=== PATIENT | male | born 1990 | race Hispanic/Latino ===

== ENCOUNTER 2016-06-02 23:29 | Emergency (ER) | payer SELFPAY ==
[~2016-06-02] VITALS: Ht 177.8 cm; Wt 75.3 kg
[2016-06-03 01:01] LABS: EOSINOPHIL (%) 0.1 % (0-5); HEMATOCRIT 46.5 % (38.0-50.0); IMMATURE GRANULOCYTE (%) 0.1 % (0.0-0.7); IMMATURE GRANULOCYTE COUNT 0.1 K/uL; MCHC 34.6 G/DL (30.0-36.0); MCV 86.8 FL (86-99); MEAN PLAT.VOLUME 11.9 uM^3 (9.0-12.4); MONOCYTE COUNT 0.1 K/uL (0-0.8); NEUTROPHIL (%) 88.2 % (45-76); NEUTROPHIL COUNT 8.6 K/uL (1.8-6.4); PLATELET COUNT 223 K/uL (156-360); RBC DIS.WIDTH-CV 12.6 % (11.8-14.6); RBC DIS.WIDTH-SD 39.7 % (39-53); RED BLOOD COUNT 5.36 M/uL (4.00-5.50); WHITE BLOOD COUNT 9.7 K/uL (4.1-10.2)
[2016-06-03 01:11] LABS: CHLORIDE 104 mEq/L (99-109); POTASSIUM 3.9 mEq/L (3.7-5.4); SODIUM 140 mEq/L (136-147)
[2016-06-03 01:13] LABS: GLUCOSE 147 mg/dL (70-99)
[2016-06-03 01:14] LABS: ANION GAP 11 MEQ/L (2-14)
[2016-06-03 01:15] LABS: TOTAL BILIRUBIN 0.4 mg/dL (0.0-1.0)
[2016-06-03 01:16] LABS: ALKALINE PHOSPHATASE 61 IU/L (3-129)
[2016-06-03 01:17] LABS: GFR ESTIMATE (CALCULATED) > 59 mL/min/
[2016-06-03 01:18] LABS: UREA NITROGEN (BUN) 16 mg/dL (9-23)
[2016-06-03 01:30] LABS: INTERNAL CONTROL VALID? YES; MONOSPOT (MONONUCLEOSIS SEROL) NEGATIVE
[2016-06-03 03:51] VITALS: BP 113/71
== END 2016-06-03 03:51 | disposition home or self-care (01) ==
LOC: EME 23:29
PROVIDERS: Emergency Medicine
DX: J02.8 Acute pharyngitis due to other specified organisms (principal); R51 Headache; R11.2 Nausea with vomiting, unspecified; M54.89 Other dorsalgia; R09.89 Other specified symptoms and signs involving the circulatory and respiratory systems
CPT/HCPCS: 70360; 70491; 71020; 71260; 80053; 85025; 86308; 87651 90; 99281; 99285; J1100